=== PATIENT | female | born 1960 | race Caucasian/White ===

== ENCOUNTER 2025-03-21 09:54 | Outpatient (CLI) | payer BC, SELFPAY ==
--- OUTSIDE RECORDS SUMMARY | 2017-01-03 09:07 | XMS_ITS | Encounter Summary ---
Author Organization [facility] Address [address] [place] [address] Care Team Providers Care Document Control Associate Name Role Phone Ewelina Boogie MD Primary Care Provider + Encounter Details Date Type Department Care Team (Late st Contact Info) Description 01/03/2017 9:07 AM EDT Hospital Encounter [facility] PULMONARY & CRITICAL CARE MEDICINE [address] [place] [address] Social History Tobacco Use Types Packs/Day Years Used Date Smoking Tobacco: Every Day Cigarettes 2 43 Passive Smoke Exposure: Current Smokeless Tobacco: Never Comments:She has a history o f smoking 2-3 packs of cigarettes for many years before she quit back in December 2014 for about 4 months, she now smokes 6-7 cigs per day; starting in . She does not smoke electrical cigarette. Alcohol Use Standard Drinks/Week Comments No 0 (1 standard drink = 0.6 oz pur e alcohol) Comments Unknown Sex and Gender Information Value Date Recorded Sex Assigned at Not on file Legal Sex Female 1:54 PM EDT Gender Identity Not on file Sexual Orientation Not on file documented as of this encounter Plan of Treatment Upcoming Encounters Date Type Department Care Team (Late st Contact Info) Description 07/02/2025 1:45 PM EST Office Visit [facility] CARDIOLOGY [address] [place] [address] Bhaskar Morataya MD [address] [facility] [address] [place] [address] 12/08/2025 1:30 PM EDT Office Visit [facility] PULMONARY [facility] CRITICAL CARE MEDICINE [address] [place] [id number] Sienna Waller APRN [address] [place] [address] documented as of this encounter Procedures Procedure Name Priority Date/Time Associated Diagnosis Comments XR CHEST PA AND LATERAL Routine 01/03/2017 9:13 AM EDT SOB (shortness of breath) documented in this encounter Results * XR Chest PA & Lateral (01/03/2017 9:13 AM EDT) Anatomical Region Laterality Modality Body, Chest N/A Radiographic Jessica ging us Aster Whitfield DIGITAL SOLUTION ARCHITECT IMG DIAGNOSTIC IMAGING RITA JASON Final Result documented in this encounter Visit Diagnoses Not on filedocumented in this encounter Additional Health Concerns Infection Onset Date Last Indicated Resolved Time COVID (rule out) 05/12/2020 05/15/2020 05/19/2020 9:10 PM EST documented as of this encounter Care Teams Document Control Associate Relationship Specialty Start Date End Date Ewelina Boogie MD [address] [facility] [address] [place] [address] PCP - General Family Medicine 01/12/16 documented as of this encounter
--- OUTSIDE RECORDS SUMMARY | 2019-04-11 10:12 | XMS_ITS | Encounter Summary ---
Author Organization [facility] Address [address] [place] [address] Care Team Providers Care Trip Follower Name Role Phone Ewelina Boogie MD Primary Care Provider + Encounter Details Date Type Department Care Team (Late st Contact Info) Description 04/11/2019 10:12 AM EDT Hospital Encounter [facility] PULMONARY & CRITICAL CARE MEDICINE [address] [place] [address] Social History Tobacco Use Types [...] Description 07/02/2025 1:45 PM EST Office Visit [facility] CARDIOLOGY [address] [place] [address] Bhaskar Morataya MD [address] [facility] [address] [place] [address] 12/08/2025 1:30 PM EDT Office Visit [facility] PULMONARY & CRITICAL CARE MEDICINE [address] [place] [address] Sienna Waller, BISTRO SERVER [address] [place], [place] [id number] documented as of this encounter Procedures Procedure Name Priority Date/Time Associated Diagnosis Comments XR CHEST PA AND LATERAL Routine 04/11/2019 10:20 AM EDT Chronic obstructive pulmonary disease, unspecified COPD type documented in this encounter Results * XR Chest PA & Lateral (04/11/2019 10:20 AM EDT) Anatomical Region Laterality Modality Body, Chest N/A Radiographic Jessica ging 04/12/2019 10:2 3 AM EDT Impressions 04/16/2019 6:48 PM EST No acute cardiopulmonary process with mild chronic changes in the background. E: 04/12/2019 This report was finalized on 04/16/2019 6:[address] Nathaniel Donohue. Narrative 04/16/2019 6:48 PM EST EXAMINATION: XR CHEST, PA AND LATERAL-04/11/2019: INDICATION: SEE DIAGNOSIS; J44.9-Chronic obstructive pulmonary disease, unspecified. COMPARISON: Chest x-ray 01/03/2017. FINDINGS: Cardiac size within normal limits. Pulmonary vascularity within normal limits. No focal opacification or consolidation. No pneumothorax or pleural effusion. Degenerative changes of the spine. Procedure Note Nathaniel Donohue DO - 04/16/2019 EXAMINATION: XR CHEST, PA AND LATERAL-04/11/2019: INDICATION: SEE DIAGNOSIS; J44.9-Chronic obstructive pulmonary disease, unspecified. COMPARISON: Chest x-ray 01/03/2017. FINDINGS: Cardiac size within normal limits. Pulmonary vascularity within normal limits. No focal opacification or consolidation. No pneumothorax or pleural effusion. Degenerative changes of the spine. IMPRESSION: No acute cardiopulmonary process with mild chronic changes in the background. E: 04/12/2019 This report was finalized on 04/16/2019 6:[address] Nathaniel Donohue. Sienna Waller APRN IMG DIAGNOSTIC IMAGING ORDER EDVIN Final Result documented in this encounter Visit Diagnoses Not on filedocumented in this encounter Additional Health Concerns Infection Onset Date Last Indicated Resolved Time COVID (rule out) 05/12/2020 05/15/2020 05/19/2020 9:10 PM EST documented as of this encounter Care Teams Trip Follower Relationship Specialty Start Date End Date Ewelina Boogie MD [address] [place] [address] PCP - General Family Medicine 01/12/16 documented as of this encounter
--- OUTSIDE RECORDS SUMMARY | 2023-10-20 10:57 | XMS_ITS | Encounter Summary ---
Author Organization [facility] Address [address] [place] [address] Care Team Providers Care Forester Aide Name Role Phone Ewelina Boogie MD Primary Care Provider + Encounter Details Date Type Department Care Team (Late st Contact Info) Description 10/20/2023 10:57 AM EDT Hospital Encounter [facility] PULMONARY & CRITICAL CARE MEDICINE [address] [place] [address] Social History Tobacco Use Types [...] Description 07/02/2025 1:45 PM EST Office Visit [facility] CARDIOLOGY [address] [place] [address] Bhaskar Morataya MD [address] [facility] [address] [place] [address] 12/08/2025 1:30 PM EDT Office Visit [facility] PULMONARY & CRITICAL CARE MEDICINE [address] [place] [address] Christin Sienna L, ADMINISTRATIVE PROFESSIONAL [address] [place], [place] [id number] documented as of this encounter Procedures Procedure Name Priority Date/Time Associated Diagnosis Comments XR CHEST PA AND LATERAL Routine 10/20/2023 11:00 AM EDT Chronic respiratory failure with hypoxia Chronic obstructive pulmonary disease, unspecified COPD type Mild intermittent asthma, unspecified whether complicated Tobacco abuse documented in this encounter Results * XR Chest PA & Lateral (10/20/2023 11:00 AM EDT) Anatomical Region Laterality Modality Body, Chest N/A Radiographic Jessica ging 10/20/2023 6:48 PM EDT Impressions 10/20/2023 6:49 PM EDT Impression: No acute cardiopulmonary process. Electronically Signed: Emeka Ghotra MD 10/20/2023 6:49 PM EDT Workstation ID: [id number] Narrative 10/20/2023 6:49 PM EDT XR CHEST PA AND LATERAL Date of Exam: 10/20/2023 11:00 AM EDT Indication: COPD Comparison: April 11, 2019 Findings: The lungs are clear. The heart and mediastinal contours appear normal. There is no pleural effusion. The pulmonary vasculature appears normal. The osseous structures appear intact. Procedure Note Emeka Ghotra MD - 10/20/2023 XR CHEST PA AND LATERAL Date of Exam: 10/20/2023 11:00 AM EDT Indication: COPD Comparison: April 11, 2019 Findings: The lungs are clear. The heart and mediastinal contours appear normal.There is no pleural effusion. The pulmonary vasculature appears normal.The osseous structures appear intact. IMPRESSION: Impression: No acute cardiopulmonary process. Electronically Signed: Emeka Ghotra MD 10/20/2023 6:49 PM EDT Workstation ID: [id number] us Sienna L Christin RITIKA IMG DIAGNOSTIC IMAGING ORDER EDVIN Final Result documented in this encounter Visit Diagnoses Not on filedocumented in this encounter Care Teams Forester Aide Relationship Specialty Start Date End Date Ewelina Boogie MD [address] [place], [place] [address] PCP - General Family Medicine 01/12/16 documented as of this encounter
--- OUTSIDE RECORDS SUMMARY | 2025-02-17 15:00 | XMS_ITS | Encounter Summary ---
Author Organization [facility] Address [address] [place] [address] Care Team Providers Care Emulsion Coater Name Role Phone Ewelina Boogie MD Primary Care Provider [phone] Gurwinder Hay MD Unavailable [phone] Giovany Ayala MD Unavailable [phone] Gurwinder Hay MD Unavailable [phone] Reason for Referral * Imaging (Routine) - Pending Review Specialty Diagnoses / Procedures Referred By Contac t Referred To Contact Radiology Diagnoses Squamous cell carcinoma of nose Procedures CT Soft Tissue Neck w IV Contrast Giovany Ayala MD [address] [address] Phone: tel: fax: Referral ID Status Reason Start Date Expiration Date V isits Requested Visits Authorized [id number] Pending Review 02/17/2025 08/19/2026 1 1 * Imaging (Routine) - Pending Review Specialty Diagnoses / Procedures Referred By Contac mich Referred To Contact Radiology Diagnoses Squamous cell carcinoma of nose Procedures CT Face w IV Contrast Giovany Ayala MD [address] [facility] [address] [place] [address] Phone: tel: fax: Referral ID Status Reason Start Date Expiration Date V isits Requested Visits Authorized [id number] Pending Review 02/17/2025 08/19/2026 1 1 Reason for Visit * Reason Comments Follow-up Encounter Details Date Type Department Care Team ([facility] st Contact Info) Description 02/17/2025 3:00 PM EDT Office Visit [facility] Head, Neck & Respiratory [address] [facility], [address]nd [place] [address] Giovany Ayala MD [address] [facility] [address] [place] [address] Squamous cell carcinoma of nose Social History Tobacco Use Types Packs/Day Years Used Date Smoking Tobacco: Every Day Cigarettes 0.5 49.8 Started: 1975 Passive Smoke Exposure: Never Smokeless Tobacco: Never Tobacco Cessation:Ready to Q uit: Not Asked; Counseling Given: Not Answered Alcohol Use Standard Drinks/Week Comments Never 0 (1 standard drink = 0.6 oz pur e alcohol) PHQ-2 Answer Date Recorded Patient Health Questionnaire-2 Score 0 02/17/2025 PHQ-9 Answer Date Recorded Patient Health Questionnaire-9 Score 0 02/17/2025 CAGE ASSESSMENT Answer Date Recorded Cage unable to access Not on file 07/14/2023 Cage max number of drinks Not on file 2023 Cage Beverages a week Not on file 07/14/2023 Have you ever felt you should CUT down on your d rinking? 0 07/14/2023 Have you been ANNOYED by people criticizing your drinking? 0 07/14/2023 Have you felt GUILTY about your drinking? 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 0 07/14/2023 CAGE Questionnaire Score 0 024 Comments No Sex and Gender Information Value Date Recorded Sex Assigned at Not on file Legal Sex Female 12:10 PM EST Gender Identity Not on file Sexual Orientation Not on file documented as of this encounter Last Filed Vital Signs Vital Sign Reading Time Taken Comments Blood Pressure 131/63 02/17/2025 3:11 PM EDT Pulse 85 02/17/2025 3:11 PM EDT Temperature 36.8 C (98.2 F) 02/17/2025 3:11 PM EDT Respiratory Rate 20 02/17/2025 3:11 PM EDT Oxygen Saturation 94% 02/17/2025 3:11 PM EDT Inhaled Oxygen Concentration - - Weight 145 kg (319 lb 10.7 oz) 02/17/2025 3:11 P M EDT Height 175.3 cm (5' 9 ) 02/17/2025 3:11 PM EDT Body Mass Index 47.21 02/17/2025 3:11 PM EDT documented in this encounter Functional Status * Over the past 2 weeks, how often have you been bothered by any of the following problems? Question Answer Date of Assessment Author Little interest or pleasure in doing things Not at all 02/17/2025 3:15 PM EDT Selma Sultana Feeling down, depressed, or hopeless Not at all 02/17/2025 3:15 PM EDT Selma Sultana Patient Health Questionnaire -2 Score 0 02/17/2025 3:15 PM EDT Selma Sultana * Question Answer Date of Assessment Author Trouble falling or staying asleep, or sleeping too much Not at all 02/17/2025 3:15 PM EDT Selma Sultana Feeling tired or having lilian le energy Not at all 02/17/2025 3:15 PM EDT Selma Sultana Poor appetite or overeating Not at all 02/17/2025 3: 15 PM EDT Selma Sultana Feeling bad about yourself - or that you are a failure or have let yourself or your family down Not at all 02/17/2025 3:15 PM JULIOT Selma Sultana Trouble concentrating on things, such as reading the newspaper or watching television Not at all 02/17/2025 3:15 PM JULIOT Selma Sultana Moving or speaking so slowly that other people could have noticed? Or the opposite - being so fidgety or restless that you have been moving around a lot more than usual. Not at all 02/17/2025 3:15 PM JULIOT Selma Sultana Thoughts that you would be better off or hurting yourself in some way Not at all 02/17/2025 3:15 PM EDT Maryjo Sultana Patient Health Questionnaire -9 Score 0 02/17/2025 3:15 PM EDT Selma Sultana documented as of this encounter Miscellaneous Notes * Progress Notes - Marci Ely MD - 02/17/2025 3:00 PM EDT Chief Complaint Patient presents with Follow-up Danica Doyle is a 64 y.o. female who presents to our clinic today for follow up evaluation. 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 The patient had surgery performed on July 13, 2023 and a subsequent skin graft on July 24, 2023. She was treated with partial adjuvant radiation therapy completing after 7fractions secondary to intolerance. She returns for clinic today for continued oncologic surveillance. She states that she is still doing well with no new complaints. She continues to wear the nasal prosthesis only when necessary as she finds it uncomfortable. She denies any new lesions, bleeding, or pain. She occasionally has some mild crusting. She is still completing daily rinses. She is attempting to quit smoking by June when her grandchild is expected to be born. Her height is 1.753 m (5' 9 ) and weight is 145 kg (319 lb 10.7 oz). Her oral temperature is 36.8 ??C (98.2 ??F). Her blood pressure is 131/63 and her pulse is 85. Her respiration is 20 and oxygen saturation is 94%. 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 This is the current list ofradiation treatment: No treatments are associated with the selected episodes (VMAT: Midline Nose). 10/18/2023 - 03/15/2024 Radiation Therapy The patient saw No care housekeeping and laundry team leader to display for radiation treatment. This is the current list ofradiation treatment: VMAT: Bilateral Nasal cavity (Resolved) Treatment Period Energy Fraction Dose Fractions Total Dose Course IMRT QA 10/23/2023-10/23/2023 (days elapsed: 0) Plans Planned Sinonasal 10/23/2023-10/23/2023 156 cGy 0 / 1 156 cGy Reference Points Delivered Verification 10/23/2023-10/23/2023 -- -- 0 cGy Course C1 10/26/2023-11/03/2023 (days elapsed: 8) Plans Planned Sinonasal 10/26/2023-11/03/2023 200 cGy 7 / 30 6,000 cGy Reference Points Delivered Sinonasal 10/26/2023-11/03/2023 -- -- 1,400 cGy Course BolusPlanning 11/07/2023-11/07/2023 (days elapsed: 0) Plans Planned BolusPlanning 11/07/2023-11/07/2023 0 / 1 Reference Points Delivered PTVTest 11/07/2023-11/07/2023 -- -- 0 cGy Course Unused 11/07/2023-11/07/2023 (days elapsed: 0) Plans Planned Sinonasal1 11/07/2023-11/07/2023 200 cGy 0 / 30 6,000 cGy Sinonasal5 11/07/2023-11/07/2023 200 cGy 0 / 30 6,000 cGy Reference Points Delivered Sinonasal 11/07/2023-11/07/2023 -- -- 0 cGy She has a past surgical history that includes cardiac stent; Gallbladder surgery; Ectopic pregnancysurgery; Cardiac catheterization; Coronary stent placement (01/02/2015); Cholecystectomy (1989); Ectopic surgery (1987); and Multiple tooth extractions. Her family history includes Breast cancer in an other family member; Cancer in an other family member; Colon cancer in her maternal grandmother; Crohn's disease in her mother; Heart Problem in her maternal grandfather; Heart attack in her mother. She was adopted. She reports that she has been smoking cigarettes. She started smoking about 49 years ago. She has a24.8 pack-year smoking history. She has never been exposed to tobacco smoke. She has never used smokeless tobacco. She reports no history of alcohol use. Nutrition Assessment Anthropometrics: Wt Readings from Last 3 Encounters: 02/17/25 145 kg (319 lb 10.7 oz) 10/17/24 146 kg (320 lb 12.3 oz) 07/18/24 145 kg (319 lb 3.6 oz) Ht Readings from Last 1 Encounters: 02/17/25 1.753 m (5' 9 ) BMI Readings from Last 1 Encounters: 02/17/25 47.21 kg/m?? Biochemical: Lab Results Component Value Date GLUCOSE 233 (H) 07/14/2023 CALCIUM 8.9 07/14/2023 NA 134 (L) 07/14/2023 K 4.8 07/14/2023 CO2 25 07/14/2023 CL 101 07/14/2023 BUN 13 07/14/2023 CREATININE 0.75 07/14/2023 PHYSICAL EXAMINATION: General: Healthy-appearing 64 y.o. patient, alert and oriented x3, in no acute distress, well nourished, well developed. Psychiatric evaluation: Normal mood and affect, very pleasant and cooperative. Nasal cavity examination: Status post total rhinectomy. No concerning mass or lesion within the visualized nasal canal. Mild crusting along the exposed turbinates. Oral cavity examination: The oral cavity is evaluated without concerning ulceration or lesion. The tongue demonstrates full range of motion. Neck: soft and supple. I did not feel any enlarged lymphadenopathy. Eyes: Extraocular movements are intact bilaterally. PERRLA. Neurological examination: Cranial nerves II-XII are grossly intact. Skin of the neck and face: did not reveal any evidence of significant rashes or suspicious appearing nevi or other concerning lesions. Endocrine examination: I do not feel any thyroid nodules. No thyromegaly. Respiratory: chest is symmetrical, breathing comfortably without effort. The patient has been counseled on tobacco cessation: Yes Diagnosis Plan 1. Squamous cell carcinoma of nose Clinic Appointment Request Follow up; GIOVANY AYALA IMPRESSION/PLAN: Ms. Doyle is a 64yr F PMH sinonasal squamous cell carcinoma one yr s/p total rhinectomy presentingtoday for routine follow up. The patient's physical examination does not demonstrate any concern for tumor recurrence. Patient to return to our clinic in [address] face and neck with contrast.Patient will contact us sooner if there is any questions or concerns. Marci Ely MD Cosigned by Giovany Ayala MD at 02/20/2025 4:55 PM EDT Associated attestation - Giovany Ayala MD - 02/20/2025 4:55 PM EDT I saw and evaluated the patient with the resident/fellow. I discussed the case with the resident/fellow and agree with the findings and plan as documented. Giovany Ayala MD, FACS Head & Neck Surgical Oncology, Transoral Robotic Surgery (TORS), Thyroid & Parathyroid Surgery and Microvascular Reconstruction Department of Otolaryngology-Head & Neck Surgery [facility] Head, Neck, & Respiratory Clinic [facility] documented in this encounter Plan of Treatment Upcoming Encounters Date Type Department Care Team (Late st Contact Info) Description 05/19/2025 12:40 PM EST Appointment [facility] Radiology [address] [place] [address] 05/19/2025 2:30 PM EST Office Visit [facility] Head, Neck & Respiratory [address] [facility] [place] [address] Giovany Ayala MD [address] [facility] [address] [place] [address] Scheduled Orders Name Type Priority Associated Diagnoses Orde r Schedule CT Face w IV Contrast Imaging Routine Squamous cell carcinoma of nose Expected: 05/19/2025, Expires: 08/21/2026 CT Soft Tissue Neck w IV Contrast Imaging Routine Squamous cell carcinoma of nose Expected: 05/19/2025, Expires: 08/21/2026 documented as of this encounter Visit Diagnoses Diagnosis Squamous cell carcinoma of nose documented in this encounter Additional Health Concerns Assessment Noted Time PHQ-9 Depression Total Score: 0 02/18/20 25 3:15 PM EDT A fall risk assessment has been complete d for the patient 02/17/2025 3:16 PM EDT A Body Mass Index follow-up plan has been documented for the patient 10/21/2024 10:20 AM EDT documented as of this encounter Care Teams Emulsion Coater Relationship Specialty Start Date End Date Ewelina Boogie MD [address] [place] [address] [address] [place] [address] PCP - General 06/01/23 Gurwinder Hay MD [address] [facility] [address] [place] [address] 06/08/23 Giovany Ayala MD [address] [place] [address] [address] Surgeon Otolaryngology 06/08/23 Gurwinder Hay MD [address] [address] 06/08/23 documented as of this encounter
--- NOTE | 2025-03-21 09:57 | CT_ITS ---
FINAL REPORT TECHNIQUE: Thin section axial images were obtained through the lungs using a low-dose technique per lung cancer screening protocol. Reconstruction images were obtained using the axial data. Exam was performed using dose reduction technique. CLINICAL HISTORY: SMOKER current smoker 1.5ppd x 50 years COMPARISON: None FINDINGS: CTDLvol: 2.90 DLP: 98.47 Current smoker 75 pack year history Lungs: Subpleural 5 mm left lower lobe pulmonary nodule as seen on series 4, image 27. There are several additional noncalcified left lower lobe pulmonary nodules, largest measuring 5 mm on image 44. There is a right lower lobe 4 mm nodule on image 55. Lungs are otherwise clear. Lymph nodes: Mildly prominent bilateral axillary lymph nodes. No other lymphadenopathy. Mediastinum: Heart size is normal. Prominent coronary artery calcifications. Pleura/pericardium: No pleural or pericardial effusion. Other: No acute abnormality in the upper abdomen. Bilateral adrenal nodules are indeterminate. IMPRESSION: Bilateral noncalcified nodules, largest measuring 5 mm. Modifier S: Prominent coronary artery calcifications and bilateral adrenal nodules. Lung RADS: 2S Recommendation: 12 month follow-up low-dose chest CT Reviewed, Interpreted and Dictated by Yanely Hollins MD Transcribed by Linda Fernández Authenticated and [facility]
--- OUTSIDE RECORDS SUMMARY | 2025-03-21 09:57 | XMS_ITS ---
Author Organization [facility] Address [address] [place] [address] Care Team Providers Care Beauty Specialist Name Role Phone Ewelina Boogie MD Primary Care Provider [phone] Gurwinder Hay MD Unavailable [phone] Greg Ayala MD Unavailable [phone] Gurwinder Hay MD Unavailable [phone] Active Problems Problem Noted Date Diagnosed Date Squamous cell carcinoma of nose 07/13/2023 Cancer Staging:Pathologic:Stage Unknown(pT4a, pNX, cM0) - Signed by Renetta Anthony MD on 10/03/2023 Tobacco use disorder 06/14/2023 Current Treatment and Therapy Plans No current plan information found. Past Treatment and Therapy Plans No past plan information found. Past Radiation Episodes * VMAT: Bilateral Nasal cavityOverview* First Treatment Date Last Treatment Date Treatment Site Technique Goal Episode Provider 10/23/2023 11/07/2023 Bilateral Nasal cavity VMAT Prophylactic * Linked Problems Squamous cell carcinoma of n ose Treatment Courses* Course BolusPlanning 11/07/2023 - 11/07/2023 Treatment Period Fraction Dose Fractions Total Dose Plans Planned BolusPlanning 11/07/2023 - 11/07/2023 0 / 1 Reference Points Delivered PTVTest 11/07/2023 - 11/07/2023 0 cGy * Course Unused 11/07/2023 - 11/07/2023 Treatment Period Fraction Dose Fractions Total Dose Plans Planned Sinonasal1 11/07/2023 - 11/07/2023 200 cGy 0 30 6 ,000 cGy Sinonasal5 11/07/2023 - 11/07/2023 200 cGy 0 / 30 6 ,000 cGy Reference Points Delivered Sinonasal 11/07/2023 - 11/07/2023 0 cGy * Course C1 10/26/2023 - 11/03/2023 Treatment Period Fraction Dose Fractions Total Dose Plans Planned Sinonasal 10/26/2023 - 11/03/2023 200 cGy 7 / 30 6 ,000 cGy Reference Points Delivered Sinonasal 10/26/2023 - 11/03/2023 1,400 cGy * Course IMRT QA 10/23/2023 - 10/23/2023 Treatment Period Fraction Dose Fractions Total Dose Plans Planned Sinonasal 10/23/2023 - 10/23/2023 156 cGy 0 / 1 1 56 cGy Reference Points Delivered Verification 10/23/2023 - 10/23/2023 0 cGy Resolved Problems Problem Noted Date Diagnosed Date Resolved Date Second hand smoke exposure 06/14/2023 0 03/02/2025
--- OUTSIDE RECORDS SUMMARY | 2025-03-21 09:57 | XMS_ITS | Clinical Summary ---
Author Organization [facility] Address [address] [place] [address] Phone Care Team Providers Care Cripple Cutter Name Role Phone VERA MARRERO, MILES Wilson Unavailable [phone] Damian MARRERO, Mary Ann Lancaster Unavailable Unavailab le Reason for Visit and Chief Complaint The Chief Complaint is: Left knee pain Problems Includes: Problems addressed during this encounter and other active Problems All Visits Onset Date Resolved Date Provider Condition S tatus Joint Pain Left Knee 09/13/2019 Mary Ann keys MD Active Last Documented On 0 10:39AM ; [facility] Plan of Treatment I believe if she would just let this rest she be best served by treating this conservatively. Considering the present environment with the coronavirus and her medical history she would have to have any surgical procedure done at the hospital and I would be concerned of complications with all of the above. For this reason we will treat this conservatively and enforce the need for activity restrictions ice elevation. She needs to talk with her expense clerk to see if she can minimize her blood thinner medications without putting her at risk. We will see her back if there is sudden change otherwise we will see her back in a month's time. - Last Documented On 09/26/2019 8:38AM ; [facility] Instructions to patient Instructions for patient to see pcp for wt Last Documented On 0 9:04AM ; [facility] Intervention and counseling on cessation of tobacco use Last Documented On 0 9:04AM ; [facility] Lose weight Last Documented On 0 9:04AM ; [facility] Education and Decision Aids were provided during visit for: Health seminar on smoking ce ssation Last Documented On 0 9:04AM ; [facility] Assessments Includes: Assessments from this encounter Findings Left knee seroma/hematoma-persistent - Last Documented On 09/26/2019 8:38AM ; [facility] Instructions Includes: Instructions from this encounter Instructions to patient Instructions for patient to see pcp for wt Last Documented On 0 9:04AM ; [facility] Intervention and counseling on cessation of tobacco use Last Documented On 0 9:04AM ; [facility] Lose weight Last Documented On 0 9:04AM ; [facility] Education and Decision Aids were provided during visit for: Health seminar on smoking ce ssation Last Documented On 0 9:04AM ; [facility] Medical Equipment - Implanted Devices Includes: Current Devices No Medical Equipment Recorded Medications Includes: Medications discussed during this encounter and other current Medications Current Medications (continue as prescribed) Januvia 50 MG Oral Tablet 09/13/2019 Provider: Diagnosis: Last Documented On 0 9:40AM By Angel Wright ; [facility], [facility] Klor-Con 20 MEQ Oral Packet 09/13/2019 Provider: Diagnosis: Last Documented On 0 9:40AM By Angel Wright ; [facility], [facility] glyBURIDE-metFORMIN 5-500 MG Oral Tablet 09/13/2019 Provider: Diagnosis: Last Documented On 0 9:42AM By Angel Wright ; [facility], [facility] Atorvastatin Calcium 80 MG Oral Tablet 09/13/2019 Pr ovider: Diagnosis: Last Documented On 0 9:42AM By Angel Wright ; [facility], [facility] Furosemide 40 MG Oral Tablet 09/13/2019 Provider: Diagnosis: Last Documented On 0 9:43AM By Angel Wright ; [facility], [facility] Adult Aspirin EC Low Strengt h 81 MG Oral Tablet Delayed Release 09/13/2019 Provider: Diagnosis: Last Documented On 0 9:43AM By Angel Wright ; [facility], [facility] Xyzal 5 MG Oral Tablet 09/13/2019 Provider: Diagnosis: Last Documented On 0 9:43AM By Angel Wright ; [facility], [facility] Clopidogrel Bisulfate 75 MG Oral Tablet 09/13/2019 P rovider: Diagnosis: Last Documented On 0 9:43AM By Angel Wright ; [facility], [facility] Lisinopril 5 MG Oral Tablet 09/13/2019 Provider: Diagnosis: Last Documented On 0 9:44AM By Angel Wright ; [facility], [facility] Dulera 100-5 MCG/ACT Inhalation Aerosol 09/13/2019 P rovider: Diagnosis: Last Documented On 0 9:44AM By Angel Wright ; [facility], [facility] ProAir HFA 108 (90 Base) MCG/ACT Inhalation Aero mina Solution 09/13/2019 Provider: Diagnosis: Last Documented On 0 9:44AM By Angel Wright ; [facility], [facility] Nitroglycerin 0.4 MG Sublingual Tablet Sublingual 08/2019 Provider: Diagnosis: Last Documented On 0 9:45AM By Angel Wright ; [facility], [facility] Tiotropium [place]-Olodatero l 2.5-2.5 MCG/ACT Inhalation Aerosol Solution 09/13/2019 Provider: Diagnosis: Last Documented On 0 9:45AM By Angel Wright ; [facility], [facility] Spiriva Respimat 2.5 MCG/ACT Inhalation Aerosol Soluti on 09/13/2019 Provider: Diagnosis: Last Documented On 0 9:45AM By Angel Wright ; [facility], [facility] Past Medications on file [place] 5-325 MG Oral Tablet 09/13/2019 - 10/13/2019 Pro vider: Mary Ann Salgado MD Diagnosis: 1 PO every bedtime Last Documented On 0 9:53AM By Angel Wright ; [facility], [facility] Medications Administered Includes: Administered Medications from this encounter No Administered Medications Recorded Vital Signs Includes: Vital Signs from this encounter Vital Name 09/20/2019 09:04A Height (in) 69 Weight (lb) 315 Body Mass Index (kg/m2) 46.5 Body Surface Area (m2) 2.5 Note: SLR Last Documented: On 09/20/2019 9:04AM ; [facility], [facility] Results Includes: Results discussed during this encounter No Results Recorded For Specified Dates History of Present Illness Includes: History of Present Illness from this encounter HPI Dnaica Doyle is a 59 year old female. - Allergy list reviewed - Problem list reviewed - Medication list reviewed - Medication reconciliation performed Social History Description Last Updated Caffeine use 09/20/2019 Last Documented On 0 8:38AM ; [facility] Current smoker 09/20/2019 Last Documented On 0 8:38AM ; [facility] Not exercising regularly 09/20/2019 Last Documented On 0 8:38AM ; [facility] Not using alcohol 09/20/2019 Last Documented On 0 8:38AM ; [facility] Not using drugs 09/20/2019 Last Documented On 0 8:38AM ; [facility] Recent change in diet 09/20/2019 Last Documented On 0 8:38AM ; [facility] Smoking status : Never smoker 09/20/2019 Last Documented On 0 8:38AM ; [facility] Tobacco use 09/20/2019 Last Documented On 0 8:38AM ; [facility] Procedures and Surgical History Includes: Procedures from this encounter Procedures Code Diagnosis Performing Provider Service L ocation Service Date education and instructions Last Documented On 0 9:04AM ; [facility] 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 Last Documented On 0 9:04AM ; [facility] Clinical summary provided to patient Last Documented On 0 9:04AM ; [facility] Surgical History Last Updated History of heart surgery heart cath 09/10 Last Documented On 0 8:38AM ; [facility] Medical History Includes: Medical History addressed during this encounter Description Last Updated sleep apnea ~use of CPAP 09/20/2019 Last Documented On 0 8:38AM ; [facility] Arthritic joint problems 09/20/2019 Last Documented On 0 8:38AM ; [facility] Gallbladder disease 09/20/2019 Last Documented On 0 8:38AM ; [facility] History of acute myocardial infarction 0 09/20/2019 Last Documented On 0 8:38AM ; [facility] History of asthma 09/20/2019 Last Documented On 0 8:38AM ; [facility] History of diabetes mellitus 09/20/2019 Last Documented On 0 8:38AM ; [facility] Intermittent hypertension 09/20/2019 Last Documented On 0 8:38AM ; [facility] Family History Includes: Family History addressed during this encounter Description Last Updated Family history of cancer 09/20/2019 Last Documented On 0 8:38AM ; [facility] Family history of heart disease 09/20/19 20 Last Documented On 0 8:38AM ; [facility] Review of Systems Includes: Review of Systems from this encounter Systemic: Not feeling tired (fatigue), no recent weight loss, and no recent weight gain. No edema. Head: No headache and no sinus pain. Eyes: Vision problems. No vision problems and no glaucomatous visual field defect. Otolaryngeal: No hearing loss and no tinnitus. No nasal symptoms. Cardiovascular: No chest pain or discomfort and no palpitations. Pulmonary: Daytime asthma symptoms. No cough and no chronic cough. No wheezing. Gastrointestinal: No heartburn and no abdominal pain. Endocrine: No hot flashes and no muscle weakness. Hematologic: Easy bleeding and a tendency for easy bruising. Musculoskeletal: Lower back pain. No soft tissue swelling and no localized joint pain. Neurological: No dizziness, no convulsions, and no numbness. Psychological: No anxiety, no emotional lability, no depression, and no insomnia. Not crying for no reason. Skin: No dry skin, no rash, and no ulcers. Allergic and Immunologic: No complaint of seasonal allergic reaction. Mental Status Includes: Mental Status from this encounter Description No anxiety Functional Status Includes: Functional Status from this encounter No Functional Status Recorded Physical Exam Includes: Physical Exam from this encounter Allergies Includes: Active Allergies No Known Allergies Encounters Encounter Provider Location Date Check-In Time Check- Out Time Diagnosis Follow Up Mary Ann Salgado MD [facility] 0 9:03AM 9:59AM Insurance Includes: Active Insurance Policies Plan Name Member ID Group # Subscriber Relationship Effect matthew Dates 1 - [facility] [id number] Danica Doyle Self 06/12/2019 - Unknown Clinical Notes Includes: Clinical Notes from this encounter No Clinical Notes Recorded
--- OUTSIDE RECORDS SUMMARY | 2025-03-21 09:57 | XMS_ITS | Clinical Summary ---
Author Organization [facility] Address [address] [place] [address] Phone Care Team Providers Care Production Analyst Name Role Phone VERA MARRERO, MILES Wilson Unavailable [phone] Damian MARRERO, Mary Ann Lancaster Unavailable Unavailab le Reason for Visit and Chief Complaint The Chief Complaint is: Left knee pain Problems Includes: Problems addressed during this encounter and other active Problems Current Visit Onset Date Resolved Date Provider Neville jurado Status Joint Pain Left Knee 09/13/2019 Mary Ann keys MD Active Last Documented On 0 10:39AM ; [facility] Plan of Treatment At this point she needs to talk with the cardiology office to see if she can come off her Plavix and aspirin. If she can we will hold all these medications for the next week. She is to use aggressive icing. Will give her pain medication ([place] 5 mg) for nighttime pain. If she needs to protect her cardiovascular status with blood thinners will ask if she could go to Lovenox shots. She is to contact us if this changes in any way such as increases in pain or any redness swelling or fevers chills or sweats. Will see her back in a week's time for repeat evaluation and hope that this starts to resolve with time and off of blood thinners if not we may have to consider an urgent I&D of this large hematoma. - Last Documented On 09/25/2019 11:12AM ; [facility] Instructions to patient Instructions for patient to see pcp for wt Last Documented On 0 10:40AM ; [facility] Intervention and counseling on cessation of tobacco use Last Documented On 0 10:40AM ; [facility] Lose weight Last Documented On 0 10:40AM ; [facility] Education and Decision Aids were provided during visit for: Health seminar on smoking ce ssation Last Documented On 0 10:40AM ; [facility] Assessments Includes: Assessments from this encounter Findings Left knee large hematoma seroma - Last Documented On 09/25/2019 11:12AM ; [facility] History of cardiovascular disease on Plavix and aspirin - Last Documented On 09/25/2019 11:12AM ; [facility] History of COPD on nighttime oxygen - Last Documented On 09/25/2019 11:12AM ; [facility] History of diabetes with controlled maintained sugar levels on oral medications - Last Documented On 09/25/2019 11:12AM ; [facility] Instructions Includes: Instructions from this encounter Instructions to patient Instructions for patient to see pcp for wt Last Documented On 0 10:40AM ; [facility] Intervention and counseling on cessation of tobacco use Last Documented On 0 10:40AM ; [facility] Lose weight Last Documented On 0 10:40AM ; [facility] Education and Decision Aids were provided during visit for: Health seminar on smoking ce ssation Last Documented On 0 10:40AM ; [facility] Medical Equipment - Implanted Devices Includes: Current Devices No Medical Equipment Recorded Medications Includes: Medications discussed during this encounter and other current Medications New / Renewed during this visit Mary Ann Salgado MD on 09/13/2019 [place] 5-325 MG Oral Tablet Provider: Leno Salgado MD 30 day supply: 30 tablet, 0 refills Diagnosis: 1 PO every bedtime Last Documented On 0 9:53AM By Angel Wright ; [facility] Current Medications (continue as prescribed) Januvia 50 MG Oral Tablet 09/13/2019 Provider: Diagnosis: Last Documented On 0 9:40AM By Angel Wright ; [facility] Klor-Con 20 MEQ Oral Packet 09/13/2019 Provider: Diagnosis: Last Documented On 0 9:40AM By Angel Wright ; [facility] glyBURIDE-metFORMIN 5-500 MG Oral Tablet 09/13/2019 Provider: Diagnosis: Last Documented On 0 9:42AM By Angel Wright ; [facility], [facility] Atorvastatin Calcium 80 MG Oral Tablet 09/13/2019 Pr ovider: Diagnosis: Last Documented On 0 9:42AM By Angel Wright ; [facility], [facility] Furosemide 40 MG Oral Tablet 09/13/2019 Provider: Diagnosis: Last Documented On 0 9:43AM By Angel Wright ; [facility], [facility] Adult Aspirin EC Low Strengt h 81 MG Oral Tablet Delayed Release 09/13/2019 Provider: Diagnosis: Last Documented On 0 9:43AM By Angel Wright ; [facility], [facility] Xyzal 5 MG Oral Tablet 09/13/2019 Provider: Diagnosis: Last Documented On 0 9:43AM By Angel Wright ; [facility], [facility] Clopidogrel Bisulfate 75 MG Oral Tablet 09/13/2019 P rovider: Diagnosis: Last Documented On 0 9:43AM By Angel Wrgiht ; [facility], [facility] Lisinopril 5 MG Oral Tablet 09/13/2019 Provider: Diagnosis: Last Documented On 0 9:44AM By Angel Wright ; [facility], [facility] Dulera 100-5 MCG/ACT Inhalation Aerosol 09/13/2019 P rovider: Diagnosis: Last Documented On 0 9:44AM By Angel Wright ; [facility], [facility] ProAir HFA 108 (90 Base) MCG/ACT Inhalation Aero mina Solution 09/13/2019 Provider: Diagnosis: Last Documented On 0 9:44AM By Angel Wright ; [facility], [facility] Nitroglycerin 0.4 MG Sublingual Tablet Sublingual 08/2019 Provider: Diagnosis: Last Documented On 0 9:45AM By Angel Wright ; [facility], [facility] Tiotropium [place]-Olodatero l 2.5-2.5 MCG/ACT Inhalation Aerosol Solution 09/13/2019 Provider: Diagnosis: Last Documented On 0 9:45AM By Angel Wright ; [facility], [facility] Spiriva Respimat 2.5 MCG/ACT Inhalation Aerosol Soluti on 09/13/2019 Provider: Diagnosis: Last Documented On 0 9:45AM By Angel Wright ; [facility] Medications Administered Includes: Administered Medications from this encounter No Administered Medications Recorded Vital Signs Includes: Vital Signs from this encounter Vital Name 09/18/2019 10:39A Height (in) 69 Weight (lb) 315 Body Mass Index (kg/m2) 46.5 Body Surface Area (m2) 2.5 Note: lrhNO BP due to COID -19 Last Documented: On 09/18/2019 10:40A M ; [facility] Results Includes: Results discussed during this encounter No Results Recorded For Specified Dates History of Present Illness Includes: History of Present Illness from this encounter PASCALE Doyle is a 59 year old female. - Allergy list reviewed - Problem list reviewed - Medication list reviewed - Medication reconciliation performed - Previous history of new onset pain 08/29/2019 pt fell - Pain is constant (100% of the time) Please rate pain on scale of 1 - 10: 8 No Previous Treatment Social History Description Last Updated Tobacco use 09/18/2019 Last Documented On 0 11:12AM ; [facility] Caffeine use 09/18/2019 Last Documented On 0 11:12AM ; [facility] Current smoker 09/18/2019 Last Documented On 0 11:12AM ; [facility] Not exercising regularly 09/18/2019 Last Documented On 0 11:12AM ; [facility] Not using alcohol 09/18/2019 Last Documented On 0 11:12AM ; [facility] Not using drugs 09/18/2019 Last Documented On 0 11:12AM ; [facility] Recent change in diet 09/18/2019 Last Documented On 0 11:12AM ; [facility] Smoking status : Never smoker 09/13/2019 Last Documented On 0 11:12AM ; [facility] Procedures and Surgical History Includes: Procedures from this encounter Procedures Code Diagnosis Performing Provider Service L ocation Service Date education and instructions Last Documented On 0 10:40AM ; [facility] 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 Last Documented On 0 10:40AM ; [facility], [facility] Clinical summary provided to patient Last Documented On 0 9:19AM ; [facility], [facility] Surgical History Last Updated History of heart surgery heart cath 01/2020 Last Documented On 0 11:12AM ; [facility], [facility] Medical History Includes: Medical History addressed during this encounter Description Last Updated sleep apnea ~use of CPAP 09/18/2019 Last Documented On 0 11:12AM ; [facility], [facility] Arthritic joint problems 09/18/2019 Last Documented On 0 11:12AM ; [facility], [facility] Gallbladder disease 09/18/2019 Last Documented On 0 11:12AM ; [facility], [facility] History of acute myocardial infarction 0 09/18/2019 Last Documented On 0 11:12AM ; [facility], [facility] History of asthma 09/18/2019 Last Documented On 0 11:12AM ; [facility], [facility] History of diabetes mellitus 09/18/2019 Last Documented On 0 11:12AM ; [facility], [facility] Intermittent hypertension 09/18/2019 Last Documented On 0 11:12AM ; [facility], [facility] Family History Includes: Family History addressed during this encounter Description Last Updated Family history of cancer 09/18/2019 Last Documented On 0 11:12AM ; [facility], [facility] Family history of heart disease 09/18/19 20 Last Documented On 0 11:12AM ; [facility], [facility] Review of Systems Includes: Review of Systems from this encounter Systemic: Not feeling tired (fatigue), no recent weight loss, and no recent weight gain. No edema. Head: No headache, no sinus pain, and no sinus pain. Eyes: Vision problems. No vision problems and no glaucomatous visual field defect. Otolaryngeal: No hearing loss, no hearing loss, and no tinnitus. No nasal symptoms. Cardiovascular: No chest pain or discomfort, no chest pain or discomfort, and no palpitations. Pulmonary: Daytime asthma symptoms. No cough and no chronic cough. No wheezing. Gastrointestinal: No heartburn, no heartburn, and no abdominal pain. Endocrine: No hot [...] Encounters Encounter Provider Location Date Check-In Time Check-Out Time Diagnosis Physician Specified Mary Ann Salgado MD [facility] 09/13/19 20 9:07AM 9:46AM Insurance Includes: Active Insurance Policies Plan Name Member ID Group # Subscriber Relationship Effect matthew Dates 1 - [facility] [id number] Danica Wilkins 06/12/2019 - Unknown Clinical Notes Includes: Clinical Notes from this encounter No Clinical Notes Recorded
--- OUTSIDE RECORDS SUMMARY | 2025-03-21 09:57 | XMS_ITS | Encounter Summary ---
Author Organization [facility] Address [address] [place] [address] Care Team Providers Care Vehicle Technician Name Role Phone Eweilna Boogie MD Primary Care Provider + Reason for Visit * Reason Onset Date Comments Med Refill 02/03/2025 Encounter Details Date Type Department Care Team (Late st Contact Info) Description 02/03/2025 Refill [facility] [address] [place] [address] Bhaskar Morataya MD [address] [place] [address] Med Refill Social History Tobacco Use Types Packs/Day Years [...] Description 07/02/2025 1:45 PM EST Office Visit [facility] [address] [place] [address] Bhaskar Morataya MD [address] [place], [place] [id number] 12/08/2025 1:30 PM EDT Office Visit [facility] PUL[facility] & [facility]ARE MEDICINE [address] [place] [address] Sienna Waller, [facility] [employer] [address] [place], [place] [id number] documented as of this encounter Visit Diagnoses Not on filedocumented in this encounter Care Teams Vehicle Technician Relationship Specialty Start Date End Date Ewelina Boogie MD [address] [facility] [address] [place] [address] PCP - General Family Medicine 01/12/16 documented as of this encounter
--- OUTSIDE RECORDS SUMMARY | 2025-03-21 09:57 | XMS_ITS | Clinical Summary ---
Author Organization [facility] Address [address] [place] [address] Care Team Providers Care Osteopathic Resident Name Role Phone Ewelina Boogie MD Primary Care Provider [phone] Gurwinder Hay MD Unavailable [phone] Greg Ayala MD Unavailable [phone] Gurwinder Hay MD Unavailable [phone] Allergies No known active allergies Medications SITagliptin (Januvia) 25 MG tablet Take 1 tablet (25 mg) by mouth 1 (one) time each morning. Active potassium chloride (Klor-Con) 20 MEQ packet Take 20 mEq by mouth 1 (one) time each morning. Active glyBURIDE-metFO RMIN (Glucovance) 5-500 MG tablet Take 2 tablets by mouth 2 (two) times a day. Active carvedilol (Coreg) 6.25 MG tablet Take 1 tablet (6.25 mg) by mouth 2 (two) times a day. 3 Active atorvastatin (Lipitor) 80 MG tablet Take 1 tablet (80 mg) by mouth every night. 3 Active furosemide (Lasix) 40 MG tablet Take 1 tablet (40 mg) by mouth 1 (one) time each day in the morning. Active aspirin 81 MG EC tablet Take 1 tablet (81 mg) by mouth 1 (one) time each day. Active levocetirizine (Xyzal Allergy 24HR) 5 MG tablet Take 1 tablet (5 mg) by mouth 1 (one) time each morning. Active lisinopril 5 MG tablet Take 1 tablet (5 mg) by mouth 1 (one) time each morning. Active Wixela Inhub 100-50 MCG/ACT diskus inhaler TAKE 1 PUFF BY MOUTH TWICE A DAY Active albuterol 108 (90 Base) MCG/ACT inhaler Inhale 2 puffs every 4 (four) hours if needed. Active nitroglycerin (Nitrostat) 0.[address] 1 TABLET UNDER TONGUE EVERY 5 MINS, UP TO 3 DOSES NEEDED FOR CHEST PAIN Active Spiriva Respimat 2.5 MCG/ACT inhaler Inhale 2 puffs 1 (one) time each day in the evening. 3 Active OneTouch Ultra test strip 1 (one) time each day. for testing as directed 3 Active Januvia 100 MG tablet Take 1 tablet (100 mg) by mouth 1 (one) time each day. 4 Active chlorhexidine (Peridex) 0.12 % solution 2 (two) times a day. as directed 4 Active Xarelto 2.5 MG tablet 4 Active lidocaine (Xylocaine) 2 % solution Switch and Spit 10 mL lidocaine solution each use, q4h PRN; Do not swallow. 1000 mL 1 4 Active Additional Information Patient not taking.Reported on 02/17/2025 KLOR-CON 20 MEQ ER tablet Take 1 tablet (20 mEq) by mouth 1 (one) time each day in the morning. 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:Stage Unknown(pT4a, pNX, cM0) - Signed by Renetta Anthony MD on 10/03/2023 Tobacco use disorder 06/14/2023 Resolved Problems Problem Noted Date Diagnosed Date Resolved Date Second hand smoke exposure 06/14/2023 0 03/02/2025 Encounters Date Type Department Care Team Description 02/17/2025 3:00 PM EDT Office Visit [facility] [address] [facility]nd [place] [address] Greg Ayala MD Squamous cell carcinoma of nose 02/17/2025 Travel from Last 3 Months Family History * Patient is adopted Medical History Relation Name Comments Heart Problem Maternal Grandfather Colon cancer Maternal Grandmother Crohn's disease Mother Heart attack Mother Breast cancer Other Cancer Other Anesthesia problems Neg Hx Malig Hyperthermia Neg Hx Relation Name Status Comments Maternal Grandfather Maternal Grandmother Mother Other Social History Tobacco Use Types Packs/Day Years [...] drink first t agustina in 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 0 07/14/2023 CAGE Questionnaire Score 0 024 Comments No Sex and Gender Information Value Date Recorded Sex Assigned at Not on file Legal Sex Female 12:10 PM EST Gender Identity Not on file Sexual Orientation Not on file Last Filed Vital Signs Vital Sign Reading [...] Mass Index 47.21 02/17/2025 3:11 PM EDT Plan of Treatment Upcoming Encounters Date Type Department Care Team (Late st Contact Info) Description 05/19/2025 12:40 PM EST Appointment [facility] Radiology [address] [place] [phone] 05/19/2025 2:30 PM EST Office Visit [facility] [address] [place] [address] Greg Ayala MD [address] [address] [place] [address] Health Maintenance Due Date Last Done Comments [facility]-HIV Screening 1960 [facility]-Hepatitis C Screening 1960 [facility]-Infant/Child/Adol SDOH Screenings 1960 [id number] Vaccine (#1) 1965 [facility]- SDOH Screenings 1978 [facility]-Adult SDOH Screenings 1978 [facility]-Zoster Vaccines (1 of 2) 1979 [facility]-Pap Smear 1981 [facility]-Cervical Cancer Screening 1990 [facility]-HPV/Cotest 1990 CT Colonography 2005 Colonoscopy 2005 FIT-DNA 2005 FIT 2005 FOBT 2005 Sigmoidoscopy 2005 [facility]-Colorectal Cancer Screening 2005 [facility]-Breast Cancer Screening 2010 [facility]-Lung Cancer Screening 05/06/2016 05/06/2015 [facility]-RSV Vaccine: 60+ Years or (1 - Risk 60-74 years 1-dose series) 2020 [facility]-Pneumococcal Vaccine: 50+ Years (3 of 3 - PCV20 or PCV21) 03/24/2021 03/24/2016, 04/27/2015 [facility]-Influenza Vaccine (#1) 02/10/202505/11, 04/13/2021, 07/23/2019, Additional history exists [facility]-Depression Screening 02/17/2026 02/17/2025, 01/2025 [facility]-DTaP,Tdap,and Td Vaccines (3 - Td or Tdap) 11/20/2031 11/19/2021, 02/08/2011 [facility]-Hepatitis A Vaccines Aged Out 07/23/2019, 09/2017 No longer eligible based on patient's age to complete this topic [facility]-Obesity Intervention Completed 025, 01/11/2024, 12/27/2023, Additional history exists HPV Vaccines Aged Out No longer eligi ble based on patient's age to complete this topic [facility]-HIB Vaccines Aged Out No longer e ligible based on patient's age to complete this topic [facility]-IPV Vaccines Aged Out No longer e ligible based on patient's age to complete this topic [facility]-Rotavirus Vaccines Aged Out No lo nger eligible based on patient's age to complete this topic Insurance ANTHEM Advance Directives * Full Code (Latest Code Status on File) Date Activated Date Inactivated Comments 07/13/2023 5:39 PM 07/14/2023 7:18 PM Question Answer Comments Patient has decision-making capacity? Yes Care Teams Osteopathic Resident Relationship Specialty Start Date End Date Ewelina Boogie MD [address] [place] [address] [address] [place] [phone] PCP - General 06/01/23 Gurwinder Hay MD [address] [facility] [address] [place] [address] 06/08/23 Greg Ayala MD [address] [address] Surgeon Otolaryngology 06/08/23 Gurwinder Hay MD [address] [facility] [address] [place] [address] 06/08/23
--- OUTSIDE RECORDS SUMMARY | 2025-03-21 09:57 | XMS_ITS ---
Author Organization [facility] Address [address] [place] [address] Phone Care Team Providers Care Staple Shear Operator Name Role Phone VERA MARRERO, MILES Wilson Unavailable [phone] Damian MARRERO, Mary Ann Lancaster Unavailable Unavailab le Problems Includes: Active, inactive, and resolved Problems All Visits Onset Date Resolved Date Provider Condition S tatus Joint Pain Left Knee 09/13/2019 Mary Ann keys MD Active Last Documented On 0 10:39AM ; [facility] Plan of Treatment Instructions to patient Instructions for patient to see pcp for wt Last Documented On 0 9:04AM ; [facility] Intervention and counseling on cessation of tobacco use Last Documented On 0 9:04AM ; [facility] Lose weight Last Documented On 0 9:04AM ; [facility] Instructions for patient to see pcp for wt Last Documented On 0 10:40AM ; [facility] Intervention and counseling on cessation of tobacco use Last Documented On 0 10:40AM ; [facility] Lose weight Last Documented On 0 10:40AM ; [facility] Education and Decision Aids were provided during visit for: Health seminar on smoking ce ssation Last Documented On 0 9:04AM ; [facility] Health seminar on smoking ce ssation Last Documented On 0 10:40AM ; [facility] Assessments Includes: Assessments for all patient encounters No Assessments Recorded Instructions Includes: Instructions for all patient encounters Instructions to patient Instructions for patient to see pcp for wt Last Documented On 0 9:04AM ; [facility] Intervention and counseling on cessation of tobacco use Last Documented On 0 9:04AM ; [facility] Lose weight Last Documented On 0 9:04AM ; [facility] Instructions for patient to see pcp for wt Last Documented On 0 10:40AM ; [facility] Intervention and counseling on cessation of tobacco use Last Documented On 0 10:40AM ; [facility] Lose weight Last Documented On 0 10:40AM ; [facility] Education and Decision Aids were provided during visit for: Health seminar on smoking ce ssation Last Documented On 0 9:04AM ; [facility] Health seminar on smoking ce ssation Last Documented On 0 10:40AM ; [facility] Medical Equipment - Implanted Devices Includes: Current and historical Devices No Medical Equipment Recorded Medications Includes: Current and historical Medications Current Medications (continue as prescribed) Januvia 50 MG Oral Tablet 09/13/2019 Provider: Diagnosis: Last Documented On 0 9:40AM By Angel Wright ; [facility] Klor-Con 20 MEQ Oral Packet 09/13/2019 Provider: Diagnosis: Last Documented On 0 9:40AM By Angel Wright ; [facility] glyBURIDE-metFORMIN 5-500 MG Oral Tablet 09/13/2019 Provider: Diagnosis: Last Documented On 0 9:42AM By Angel Wright ; [facility], [facility] Atorvastatin Calcium 80 MG Oral Tablet 09/13/2019 Pr ovider: Diagnosis: Last Documented On 0 9:42AM By Angel Wright ; [facility] Furosemide 40 MG Oral Tablet 09/13/2019 Provider: Diagnosis: Last Documented On 0 9:43AM By Angel Wright ; [facility] Adult Aspirin EC Low Strengt h 81 MG Oral Tablet Delayed Release 09/13/2019 Provider: Diagnosis: Last Documented On 0 9:43AM By Angel Wright ; [facility] Xyzal 5 MG Oral Tablet 09/13/2019 Provider: Diagnosis: Last Documented On 0 9:43AM By Angel Wright ; [facility] Clopidogrel Bisulfate 75 MG Oral Tablet 09/13/2019 P rovider: Diagnosis: Last Documented On 0 9:43AM By Angel Wright ; [facility] Lisinopril 5 MG Oral Tablet 09/13/2019 Provider: Diagnosis: Last Documented On 0 9:44AM By Angel Wright ; [facility] Dulera 100-5 MCG/ACT Inhalation Aerosol 09/13/2019 P rovider: Diagnosis: Last Documented On 0 9:44AM By Angel Wright ; [facility] ProAir HFA 108 (90 Base) MCG/ACT Inhalation Aero mina Solution 09/13/2019 Provider: Diagnosis: Last Documented On 0 9:44AM By Angel Wright ; [facility] Nitroglycerin 0.4 MG Sublingual Tablet Sublingual 08/2019 Provider: Diagnosis: Last Documented On 0 9:45AM By Angel Wright ; [facility] Tiotropium [place] 2.5-2.5 MCG/ACT Inhalation Aerosol Solution 09/13/2019 Provider: Diagnosis: Last Documented On 0 9:45AM By Angel Wright ; [facility] Spiriva Respimat 2.5 MCG/ACT Inhalation Aerosol Soluti on 09/13/2019 Provider: Diagnosis: Last Documented On 0 9:45AM By Angel Wright ; [facility], [facility] Past Medications on file [place] 5-325 MG Oral Tablet 09/13/2019 - 10/13/2019 Pro vider: Mary Ann Salgado MD Diagnosis: 1 PO every bedtime Last Documented On 0 9:53AM By Angel Wright ; [facility], [facility] Medications Administered Includes: Administered Medications in patient's chart No Administered Medications Recorded Results Includes: Results from 03/21/2024 through 03/21/2025 No Results Recorded For Specified Dates History of Present Illness History of Present Illness not supported for this document type No History of Present Illness Recorded Social History Description Last Updated Caffeine use 09/20/2019 Last Documented On 0 8:38AM ; [facility] Current smoker 09/20/2019 Last Documented On 0 8:38AM ; [facility] Not exercising regularly 09/20/2019 Last Documented On 0 8:38AM ; [facility] Not using alcohol 09/20/2019 Last Documented On 0 8:38AM ; [facility] Not using drugs 09/20/2019 Last Documented On 0 8:38AM ; [facility] Recent change in diet 09/20/2019 Last Documented On 0 8:38AM ; [facility] Smoking status : Never smoker 09/20/2019 Last Documented On 0 8:38AM ; [facility] Tobacco use 09/20/2019 Last Documented On 0 8:38AM ; [facility] Procedures and Surgical History Surgical History Last Updated History of heart surgery heart cath 09/10 Last Documented On 0 8:38AM ; [facility] Medical History Includes: Medical History in patient's chart Description Last Updated sleep apnea ~use of CPAP 09/20/2019 Last Documented On 0 8:38AM ; [facility] Arthritic joint problems 09/20/2019 Last Documented On 0 8:38AM ; [facility] Gallbladder disease 09/20/2019 Last Documented On 0 8:38AM ; [facility] History of acute myocardial infarction 0 09/20/2019 Last Documented On 0 8:38AM ; [facility] History of asthma 09/20/2019 Last Documented On 0 8:38AM ; [facility] History of diabetes mellitus 09/20/2019 Last Documented On 0 8:38AM ; [facility] Intermittent hypertension 09/20/2019 Last Documented On 0 8:38AM ; [facility] Family History Includes: Family History in patient's chart Description Last Updated Family history of cancer 09/20/2019 Last Documented On 0 8:38AM ; [facility] Family history of heart disease 09/20/19 20 Last Documented On 0 8:38AM ; [facility] Review of Systems Review of Systems not supported for this document type No Review of Systems Recorded Mental Status Description No anxiety Functional Status No Functional Status Recorded Physical Exam Physical Exam not supported for this document type No Physical Exam Recorded Allergies Includes: Active, inactive, and resolved Allergies No Known Allergies Insurance Includes: Active Insurance Policies Plan Name Member ID Group # Subscriber Relationship Effect matthew Dates 1 - [facility] [id number] Danica Doyle Self 06/12/2019 - Unknown Clinical Notes Includes: Signed Clinical Notes starting from 05/26/2022 No Clinical Notes Recorded
--- OUTSIDE RECORDS SUMMARY | 2025-03-21 09:57 | XMS_ITS | Encounter Summary ---
Author Organization [facility] Address [address] [place] [address] Care Team Providers Care Bone Char Operator Name Role Phone Ewelina Boogie MD Primary Care Provider [phone] Gurwinder Hay MD Unavailable [phone] Greg Ayala MD Unavailable [phone] Gurwinder Hay MD Unavailable [phone] Encounter Details Date Type Department Care Team (Latest Contact Info) Description 02/17/2025 Travel Social History Tobacco Use Types Packs/Day Years Used Date Smoking Tobacco: Every Day Cigarettes 0.5 49.8 Started: 1975 Passive Smoke Exposure: Never Smokeless Tobacco: Never Alcohol Use Standard Drinks/Week Comments Never 0 [...] drink first t agustina 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 0 07/14/2023 CAGE Questionnaire Score 0 024 Comments No Sex and Gender Information Value Date Recorded Sex Assigned at Not on file Legal Sex Female 12:10 PM EST Gender Identity Not on file Sexual Orientation Not on file documented as of this encounter Functional Status * Over the past 2 weeks, how often have you been bothered by any of the following problems? Question Answer Date of Assessment Author Little interest or pleasure in doing things Not at all 02/17/2025 3:15 PM Selma Zhou Feeling down, depressed, or hopeless Not at all 02/17/2025 3:15 PM Selma Zhou Patient Health Questionnaire -2 Score 0 02/17/2025 3:15 PM JULIOT Selma Sultana * Question Answer Date of Assessment Author Trouble falling or staying asleep, or sleeping too much Not at all 02/17/2025 3:15 PM Selma Zhou Feeling tired or having lilian le energy Not at all 02/17/2025 3:15 PM Selma Zhou Poor appetite or overeating Not at all 02/17/2025 3: 15 PM Selma Zhou Feeling bad about yourself - or that you are a failure or have let yourself or your family down Not at all 02/17/2025 3:15 PM Selma Zhou Trouble concentrating on things, such as reading the newspaper or watching television Not at all 02/17/2025 3:15 PM Selma Zhou Moving or speaking so slowly that other people could have noticed? Or the opposite - being so fidgety or restless that you have been moving around a lot more than usual. Not at all 02/17/2025 3:15 PM Selma Zhou Thoughts that you would be better off or hurting yourself in some way Not at all 02/17/2025 3:15 PM Maryjo Zhou Patient Health Questionnaire -9 Score 0 02/17/2025 3:15 PM Selma Zhou documented as of this encounter Plan of Treatment Upcoming Encounters Date Type Department Care Team (Late st Contact Info) Description 05/19/2025 12:40 PM EST Appointment [facility] Radiology [address] [place] [phone] 05/19/2025 2:30 PM EST Office Visit Pav CC Head, Neck & Respiratory [address] [facility], [address]nd [place] [phone] Greg Ayala MD [address] [facility] [address] [place] [phone] documented as of this encounter Visit Diagnoses Not on filedocumented in this encounter Additional Health Concerns Assessment Noted Time PHQ-9 Depression Total Score: 0 02/18/20 25 3:15 PM EDT A fall risk assessment has been complete d for the patient 02/17/2025 3:16 PM EDT A Body Mass Index follow-up plan has been documented for the patient 10/21/2024 10:20 AM EDT documented as of this encounter Care Teams Bone Char Operator Relationship Specialty Start Date End Date Ewelina Boogie MD [address] [place] [address] [address] [place] [address] PCP - General 06/01/23 Gurwinder Hay MD [address] [address] 06/08/23 Greg Ayala MD [address] [facility] [address] [place] [phone] Surgeon Otolaryngology 06/08/23 Gurwinder Hay MD [address] [address] 06/08/23 documented as of this encounter
--- OUTSIDE RECORDS SUMMARY | 2025-03-21 09:57 | XMS_ITS ---
Care Plan - [facility] Created on: March 21, 2025 Danica Doyle : 1960 Sex: Female Author Organization [facility] Address [address] [place] [address] Phone Care Team Providers Care Fast Food Assistant Restaurant Manager Name Role Phone VERA MARRERO, MILES Wilson Unavailable [phone] Damian MARRERO, Mary Ann Lancaster Unavailable Unavailab le
--- OUTSIDE RECORDS SUMMARY | 2025-03-21 09:57 | XMS_ITS | Clinical Summary ---
Author Organization [facility] Address [address] [place] [address] Care Team Providers Care Volunteer Services Specialist Name Role Phone Ewelina Boogie MD Primary Care Provider + Allergies No known active allergies Medications glyBURIDE-metFORM IN (GLUCOVANCE) 5-500 MG per tablet Take 1 tablet by mouth 2 (Two) Times a Day With Meals. Active levocetirizine (XYZAL) 5 MG tablet TAKE 1 TABLET EVERY DAY 30 tablet 11 6 Active SITagliptin (JANUVIA) 25 MG tablet Take 2 tablets by mouth Daily. Active cyclobenzaprine (FLEXERIL) 10 MG tablet Take 1 tablet by mouth 3 (Three) Times a Day As Needed for Muscle Spasms. Active mupirocin (BACTROBAN) 2 % ointment mupirocin 2 % topical ointment Active HYDROcodone-aceta minophen (NORCO) 5-325 MG per tablet Take 1 tablet by mouth Every 4 (Four) to 6 (Six) Hours As Needed for Pain. 4 Active Rivaroxaban (Xarelto) 2.5 MG tablet Take 1 tablet by mouth 2 (Two) Times a Day. 180 tablet 3 5 Active aspirin 81 MG EC tablet Take 1 tablet by mouth Daily. 90 tablet 3 5 Active atorvastatin (LIPITOR) 80 MG tablet Take 1 tablet by mouth every night at bedtime. 90 tablet 3 5 Active carvedilol (COREG) 6.25 MG tablet Take 1 tablet by mouth 2 (Two) Times a Day. 180 tablet 3 5 Active furosemide (LASIX) 40 MG tablet Take 1 tablet by mouth Every Morning. 90 tablet 1 5 Active lisinopril (PRINIVIL,ZESTRIL ) 5 MG tablet Take 1 tablet by mouth Daily. 90 tablet 3 5 Active nitroglycerin (NITROSTAT) 0.[address] 1 tablet under the tongue Every 5 (Five) Minutes As Needed for Chest Pain. Take no more than 3 doses in 15 minutes. 25 tablet 3 5 Active ibuprofen (ADVIL,MOTRIN) 800 MG tablet Take 1 tablet by mouth Every 6 (Six) Hours As Needed. Active Fluticasone-Salme terol (Wixela Inhub) 100-50 MCG/ACT DISKUS Inhale 1 puff 2 (Two) Times a Day. 180 each 3 5 Active tiotropium bromide monohydrate (Spiriva Respimat) 2.5 MCG/ACT aerosol solution inhalerIndication s:Chronic obstructive pulmonary disease, unspecified COPD type,Mild intermittent asthma, unspecified whether complicated Inhale 2 puffs Daily. 4 g 5 5 Active ProAir HFA 108 (90 Base) MCG/ACT inhaler Inhale 2 puffs Every 4 (Four) Hours As Needed for Wheezing. 18 g 5 5 Active potassium chloride (KLOR-CON M20) 20 MEQ CR tablet Take 1 tablet by mouth Every Morning. 90 tablet 5 Active Active Problems Problem Noted Date Diagnosed Date Coronary artery disease invo lving [place] coronary artery of [place] heart without angina pectoris 07/03/2019 Overview (07/03/2019): Added automatically from request for surgery [id number] Morbid obesity with BMI of 45.0-49.9, adult 03/14 Asthma 11/14/2016 Chronic respiratory failure with hypoxia 017 Overview (08/05/2021): Oxygen with CPAP at night and as needed during the day with activity VASQUEZ (obstructive sleep apnea) 11/14/2016 Overview (11/14/2016): Moderate with CPAP therapy Allergic rhinitis 11/14/2016 Chronic cough 11/14/2016 Type 2 diabetes mellitus 11/14/2016 Hypoxia 11/14/2016 CAD (coronary artery disease) 01/01/2016 Overview (01/01/2016): a. Acute inferior STEMI, 01/02/2015. b. CRISTOFER to RCA as primary treatment. c. Normal LV systolic function. d. Reperfusion arrhythmias causing s hock , aspiration pneumonitis, etc., resolving. Hypertension 01/01/2016 Obesity 01/01/2016 Overview (11/14/2016): Morbid BMI 46.5 as of 03/24/2015. Dyslipidemia 01/01/2016 COPD (chronic obstructive pulmonary disease) Tobacco abuse 01/01/2016 Overview (04/11/2019): Resolved Problems Problem Noted Date Diagnosed Date Resolved Date Dependence on supplemental oxygen 11/14/2016 08/05/2021 Overview (11/14/2016): 2 L at night Abnormal CT scan, chest 11/14/201607/14 Overview (11/14/2016): Chest CT when I saw her revealed diffuse bilateral fibronodular densities. There are no prior CT scans to compare. She had a normal TLC on PFTS, she desaturates mildly w/ activty; from 94 to 87 in Nov; she has her own pulse ox at home. It reads above 88 by her report. She is wondering if she needs the portable. She has an am cough, clear sputum production, no hemeoptysis. She remains on Dulera. She has proair but doesn t use it. She has LY; but it is at baseline; no wheezing. She is trying to exercise and has lost 10 lbs since her last vist. Prominent interstitial markings on x-ray and follow-up CT scan on 05/06/2015 reports diffuse fibronodular densities throughout the upper and midlung leo bilaterally. Acute respiratory failure 11/14/2016 Overview (11/14/2016): A. Admitted into [facility] intensive care unit 01/02/2015, post CRISTOFER to dominant RCA, complicated by ventricular fibrillation, with a prolonged cardiopulmonary resuscitation followed by mechanical ventilation support. Encounters Date Type Department Care Team Description 02/03/2025 Refill [facility] CARDIOLOGY [address] [place] [address] Bhaskar Morataya MD Med Refill from Last 3 Months Immunizations Immunization Administration Dates Next Due DTaP 02/08/2011 Flu Vaccine Split Quad 03/30/2015 Flublok 18+yrs 04/13/2021,07/23/2019 Fluzone (or Fluarix & Flulav al for VFC) >6mos 05/11/2023,05/15/2018,03/03/2017,03/03 Fluzone Quad >6mos (Multi-dose) 03/24/2016 Hepatitis A 07/23/2019,05/15/2018 Pneumococcal Conjugate 13-Va lent (PCV13) 04/27/2015 Pneumococcal Polysaccharide (PPSV23) 03/24/2016 Tdap 11/19/2021 Family History Medical History Relation Name Comments Hypertension Father Other Father Dyslipidemia Hypertension Mother Other Mother Dyslipidemia Relation Name Status Comments Father Mother Social History Tobacco Use Types Packs/Day Years Used Date Smoking Tobacco: Every Day Cigarettes 2 43 Passive Smoke Exposure: Current Smokeless Tobacco: Never Tobacco Cessation:Ready to Q uit: Not Asked; Counseling Given: Not Answered Comments:She has a history of smoking 2-3 packs of cigarettes for many [...] Sign Reading Time Taken Comments Blood Pressure 156/108 12/06/2024 11:23 AM EDT Pulse 74 12/06/2024 11:23 AM EDT Temperature 36.5 C (97.7 F) 12/06/2024 11:23 AM EDT Respiratory Rate 16 12/06/2024 11:2 3 AM EDT Oxygen Saturation 94% 12/06/2024 11: 23 AM EDT room air at resting Inhaled Oxygen Concentration - - Weight 147 kg (324 lb 6 oz) 12/06/2024 11:23 AM EDT Height 175.3 cm (5' 9.02 ) 12/06/2024 1 1:23 AM EDT Body Mass Index 47.88 12/06/2024 11:23 AM EDT Plan of Treatment Upcoming Encounters Date Type Department Care Team (Late st Contact Info) Description 07/02/2025 1:45 PM EST Office Visit [facility] CARDIOLOGY [address] [place] [address] Bhaskar Morataya MD [address] [place], [place] [id number] 12/08/2025 1:30 PM EDT Office Visit [facility] PULMONARY & CRITICAL CARE MEDICINE [address] [place] [address] Sienna Waller, AMMONIUM NITRATE NEUTRALIZER [address] [place] [address] Health Maintenance Due Date Last Done Comments Annual Gynecologic Pelvic and Breast Exam 1960 DIABETIC EYE EXAM 1970 DIABETIC FOOT EXAM 1970 URINE MICROALBUMIN-CREATININE RATIO (uACR) 1970 PAP SMEAR 1981 MAMMOGRAM 2000 COLOGUARD 2005 COLON CANCER SCREENING 5 YEAR SIGMOIDOSCOPY 2005 COLONOSCOPY [address] CANCER SCREENING 2005 CT COLONOGRAPHY 2005 FECAL OCCULT BLOOD TEST 2005 FIT Testing (1 year) 2005 ZOSTER VACCINE (1 of 2) 2010 LUNG CANCER SCREENING 05/06/2016 05/06/2015 ANNUAL PHYSICAL 11/14/2016 HEPATITIS C SCREENING 11/14/2016 HEMOGLOBIN A1C 01/08/2020 07/10/2019, 01/11, 01/03/2015 INFLUENZA VACCINE 01/10/2025 05/11/2023, , 07/23/2019, Additional history exists Pneumococcal Vaccine 50+ (3 of 3 - PCV20 or PCV21) 06/04/2025 03/24/2016, 04/27/2015 Postponed from 03/24/2021 (Patient Refused) TDAP/TD VACCINES (2 - Td or Tdap) 11/20/2031 11/19/2021 Procedures Procedure Name Priority Date/Time Associated Diagnosis Comments HEMOGLOBIN A1C STAT 07/10/2019 9:[address] CHEST WO CONTRAST DIAGNOSTIC Routine 05/06/2015 3:06 PM EST from Last 3 Months or Most Recently Relevant to Health Maintenance Results * (ABNORMAL) Hemoglobin A1c (07/10/2019 9:16 AM EST) Hemoglobin A1C 5.90(H) 4.80 - 5.60 % 07/10/2019 10:59 AM EST [facility] Blood Line / Unknown 07/10/2019 9: 16 AM EST 07/10/2019 9:33 AM EST Narrative [facility] - 07/10/2019 10:59 AM EST Hemoglobin A1C Ranges: Increased Risk for Diabetes 5.7% to 6.4% Diabetes >= 6.5% Diabetic Goal < 7.0% us Chelsea Magaña PA-C LAB BLOOD ORDERABLES Final Result [facility]
[address] [place] [address], * CT chest wo contrast (05/06/2015 3:06 PM EST) Anatomical Region Laterality Modality Chest N/A Computed Tomogra phy 05/06/2015 3:06 PM EST Narrative 05/09/2015 5:09 PM EST EXAMINATION- OC-CHEST WO CONTRAST INDICATION Dyspnea, abnormal chest x-ray, productive cough. TECHNIQUE- Multiple axial CT imaging was obtained of the chest from the thoracic inlet to the adrenal glands without the administration of intravenous contrast. The radiation dose reduction device was turned on for each scan per the ALARA (As Low as Reasonably Achievable) protocol. COMPARISON- None. FINDINGS- Fibronodular density is seen throughout the lung leo bilaterally. Findings suggest an infectious process predominantly within the upper and midlung leo. Continued followup is recommended. The lung bases are spared. There is no pleural effusion or pneumothorax. Bony structures are unremarkable. The mediastinum reveals the thyroid to be homogeneous. No mediastinal mass or lymphadenopathy. The cardiac chambers are within normal limits. There is no pericardial effusion. Vascular calcifications are identified. No bulky hilar or axillary lymphadenopathy. The visualized portions of the upper abdomen are grossly unremarkable in appearance. IMPRESSION- Diffuse fibronodular densities seen throughout the upper and midlung leo bilaterally. Findings suggest a diffuse infectious process. Continued followup is recommended. The lung bases are spared. No pleural effusion or pneumothorax. DICTATED- 05/06/2015 EDITED- 05/06/2015 Reading Radiologist- VIOLA LONG Releasing Radiologist- VIOLA LONG Released Date Time- 05/09/15 1701 [employer]- [employer]. Procedure Note Viola Cowan MD - 05/09/2015 EXAMINATION- OC-CHEST WO CONTRAST INDICATION Dyspnea, abnormal chest x-ray, productive cough. TECHNIQUE- Multiple axial CT imaging was obtained of the chest from the thoracic inlet to the adrenal glands without the administration of intravenous contrast. The radiation dose reduction device was turned on for each scan per the ALARA (As Low as Reasonably Achievable) protocol. COMPARISON- None. FINDINGS- Fibronodular density is seen throughout the lung leo bilaterally. Findings suggest an infectious process predominantly within the upper and midlung leo. Continued followup is recommended. The lung bases are spared. There is no pleural effusion or pneumothorax. Bony structures are unremarkable. The mediastinum reveals the thyroid to be homogeneous. No mediastinal mass or lymphadenopathy. The cardiac chambers are within normal limits. There is no pericardial effusion. Vascular calcifications are identified. No bulky hilar or axillary lymphadenopathy. The visualized portions of the upper abdomen are grossly unremarkable in appearance. IMPRESSION- Diffuse fibronodular densities seen throughout the upper and midlung leo bilaterally. Findings suggest a diffuse infectious process. Continued followup is recommended. The lung bases are spared. No pleural effusion or pneumothorax. 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 Aster Whitfield APRN IMG CT ORDERABLES Final Res ult from Last 3 Months or Most Recently Relevant to Health Maintenance [facility] Subscriber Plan / Payer (Ef fective 2018-Present) Name:Danica Doyle Relation to Subscriber:Spouse Name:LEONARDOESPERANZA Date of :1962 (Home) Address: [place] [id number] Payer ID:[id number] ([facility]) Type:Not on file Address: [facility] [id number] [place] [phone] Advance Directives * CPR (Attempt to Resuscitate) (Latest Code Status on File) Date Activated Date Inactivated Comments 07/10/2019 1:30 PM 07/10/2019 9:11 PM Question Answer Comments Code Status (Patient has no pulse and is not breathing): CPR (Attempt to Resuscitate) Medical Interventions (Patie nt has pulse or is breathing): Full Level Of Support Discussed With: Patient Care Teams Volunteer Services Specialist Relationship Specialty Start Date End Date Ewelina Boogie MD [address] [id number] PCP - General Family Medicine 01/12/16
== END 2025-03-21 23:59 | disposition home or self-care (01) ==
LOC: RAD 09:54
PROVIDERS: PCP Family Medicine; Visit Provider Nurse Practitioner Acute Care
DX: Z12.2 Encounter for screening for malignant neoplasm of respiratory organs (principal); F17.210 Nicotine dependence, cigarettes, uncomplicated; R91.8 Other nonspecific abnormal finding of lung field; I25.10 Atherosclerotic heart disease of native coronary artery without angina pectoris; R59.0 Localized enlarged lymph nodes
CPT/HCPCS: 71271